=== PATIENT | female | born 1940 | race Caucasian/White ===

== ENCOUNTER 2023-06-17 19:22 | Observation (INO) | payer MEDICARE ==
[2023-06-17] MEDS ORDERED: DUONEB 0.5-3 MG/3 ml Neb IH ONE (19:46)
[2023-06-17] MEDS: DUONEB 0.5-3 MG/3 ml Neb IH ONE (19:48)
[2023-06-17] MEDS ORDERED: Sterile H2O 10 ml IJ ONE (19:58)
[2023-06-17] MEDS ORDERED: solu-MEDROL ONE (19:58)
[2023-06-17] MEDS: solu-MEDROL IV ONE (20:06)
[2023-06-17 20:11] LABS: Absolute Neutrophil Ct (ANC) 7.09 x10^3/uL (1.4-6.9); BASOPHIL % 0.4 % (0.0-0.4); Basophil (Absolute #) 0.04 x10^3/uL (0-0.4); Eosinophil % 0.4 % (0.00-5.0); Eosinophil (Absolute #) 0.04 x10^3/uL (0-0.5); Hematocrit 42.4 % (35-47); Hemoglobin 13.6 g/dL (12.0-16.0); IMMATURE GRAN # 0.03 x10^3u/L (0.00-0.03); IMMATURE GRAN % 0.3 % (0.00-0.4); Lymphocyte (Absolute #) 1.15 x10^3/uL (1.0-4.6); Lymphocytes % 12.2 % (24.0-44.0); Mean Cell Volume 96.6 fL (78-100); Mean Corpuscular Hgb Concent. 32.1 g/dL (32-36); Mean Platelet Volume 10.9 fL (7.5-11.0); Monocyte (Absolute #) 1.11 x10^3/uL (0.0-1.3); Monocytes % 11.7 % (0.0-12.0); Platelet Count 270 x10^3/uL (150-450); Red Blood Count 4.39 x10^6/uL (4.1-5.4); White Blood Count 9.5 x10^3/uL (4.0-10.5)
--- NOTE | 2023-06-17 20:22 | ERPHSYRPT ---
- History of Present Illness Time Seen by Provider: 06/17/23 19:31 Patient Subjective Stated Complaint: SOB, congestion Triage Nursing Assessment: 83 yr old female pt arrives to ED via POV with her family members from home. Pt brought back to room 6 via wheelchair. Pt was able to get into bed independently. Pt reports that she has been sob with congestion and a dry cough for about 1 week. Pt denies chest pain, N/V/D and fever. Pt's son states that several family members have been sick with same symptoms. Pt is SOB with exertion and unable to lie flat. Pt is 90% on room air. Pt's lungs are diminished bilateraly with wheezes to the right lower lobe. Pt is an every day smoker but states that she has smoked in a week due to not feeling well. Pt is alert, oriented and not in distress. Physician History: 83-year-old with history of COPD, tobacco abuse his presented in the ER with complains of increasing shortness of breath for 1 week. Patient reports it started as a cold congestion symptoms with gradually worsening cough minimal productive with associated increased wheezing and chest tightness. Denies any fever or chills/sick contact. Denies any lower extremity swelling. Denies any history of CAD/CHF. History patient reports getting short of breath with minimal activity. Oxygen saturation was borderline around 89/90% on presentation, placed on 2 L and currently around 93%. Allergies/Adverse Reactions: Penicillins Allergy (Severe, Verified 06/17/23 19:31) Home Medications: Timolol Maleate/Pf [Timolol Maleate 0.25% Eye Drop] 8 drops OP BID 06/17/23 [History] Tramadol HCl 50 mg [Ultram 50 mg] 50 mg PO Q6H PRN PRN 06/17/23 [History] Hx Tetanus, Diphtheria Vaccination/Date Given: No Hx Influenza Vaccination/Date Given: Yes Hx Pneumococcal Vaccination/Date Given: Yes Travel Risk - International Travel Have you traveled outside of the country in past 3 weeks: No - Emerging Infectious Disease Are you exhibiting symptoms associated with any current EIDs: Yes Symptoms: Shortness of Breath Comment: SOB x 1 week with congestion - Review of Systems Constitutional: No Symptoms Eyes: No Symptoms Ears, Nose, & Throat: Nose Congestion Respiratory: Cough, Dyspnea, Dyspnea on Exertion (COHEN), Wheezing Cardiac: No Symptoms Abdominal/Gastrointestinal: No Symptoms Genitourinary Symptoms: No Symptoms Musculoskeletal: No Symptoms Skin: No Symptoms Neurological: No Symptoms Psychological: No Symptoms Endocrine: No Symptoms Hematologic/Lymphatic: No Symptoms - Past Medical History Neurological History: No Pertinent History ENT History: Glaucoma Cardiac History: No Pertinent History Respiratory History: No Pertinent History Endocrine Medical History: No Pertinent History Musculoskeletal History: Osteoarthritis GI Medical History: No Pertinent History History: Other Psycho-Social History: No Pertinent History Female Reproductive Disorders: No Pertinent History Other Medical History: frequent UTIs - Past Surgical History Past Surgical History: Yes Neuro Surgical History: No Pertinent History Cardiac: No Pertinent History Respiratory: No Pertinent History Gastrointestinal: No Pertinent History Genitourinary: No Pertinent History Musculoskeletal: Joint Replacement Female Surgical History: Section Other Surgical History: knee replacement - Social History Smoking Status: Current every day smoker Exposure to second hand smoke: No Drug Use: none - Nursing Vital Signs Nursing Vital Signs: Initial Vital Signs Temperature 99.8 F 06/17/23 19:22 Pulse Rate 91 H 06/17/23 19:22 Respiratory Rate 22 06/17/23 19:22 Blood Pressure 193/86 06/17/23 19:22 O2 Sat by Pulse Oximetry 90 L 06/17/23 19:22 Pain Scale Pain Intensity 0 - Physical Exam General Appearance: no apparent distress, alert, anxiety Eye Exam: PERRL/EOMI Ears, Nose, Throat Exam: hearing grossly normal, pharyngeal erythema Neck Exam: normal inspection, non-tender, supple, full range of motion Respiratory Exam: diminished breath sounds, rhonchi, wheezing Cardiovascular/Chest Exam: normal heart sounds, regular rate/rhythm Abdominal/Gastrointestinal Exam: soft, normal bowel sounds, No tenderness Extremity Exam: non-tender, normal range of motion Neurologic Exam: alert, oriented x 3, cooperative, lining repairer II-XII nml as tested Skin Exam: normal color SpO2 Interpretation: O2 applied SpO2: 95 O2 Delivery: Nasal Cannula - Course EKG Interpreted by Me: RATE ([id number]), Sinus Rhythm, NORMAL AXIS, NORMAL INTERVALS, Non-specific ST Changes Ordered Tests: Active Orders 24 hr Category Date Time Status Bedrest ROUTINE Activity 06/17/23 22:49 Active Up With Assistance ROUTINE Activity 06/17/23 22:49 Active Call Admit Doctor for Orders ON ADMISSION Care 06/17/23 22:49 Active Director Acute STAT Care 06/17/23 19:45 Completed Code Status Order ROUTINE Care 06/17/23 22:49 Active EKG-ER Only STAT Care 06/17/23 19:45 Completed Fall Protocol Q1H Care 06/17/23 22:49 Active IV Insertion STAT Care 06/17/23 19:45 Completed Oxygen-ED Only Nasal Cannula 2 lpm Care 06/17/23 19:[address] in Observation ROUTINE Care 06/17/23 22:49 Active Heart-Healthy Diet Diet 06/18/23 Breakfast Active CHEST 1 VIEW (PORTABLE) Stat Exams 06/17/23 19:43 Taken BLOOD CULTURE Stat Lab 06/17/23 20:08 Received CBC W DIFF Stat Lab 06/17/23 20:00 Completed CMP Stat Lab 06/17/23 20:00 Completed Lactic Acid Stat Lab 06/17/23 19:42 Completed Lactic Acid Stat Lab 06/17/23 22:13 Received MAGNESIUM Stat Lab 06/17/23 20:00 Completed NT PRO BNPII Stat Lab 06/17/23 20:08 Completed TROPONIN Q4H Lab 06/17/23 23:45 Ordered TROPONIN Q4H Lab 06/18/23 03:45 Ordered TROPONIN Stat Lab 06/17/23 20:08 Completed UA W/RFX UR CULTURE Stat Lab 06/17/23 20:34 Completed Oxygen Nasal Cannula 2 lpm RT 06/17/23 22:49 Active Pulse Oximetry CONTINUOUS RT 06/17/23 22:49 Active Respiratory Therapy Assessment DAILY RT 06/17/23 19:51 Completed Respiratory Therapy Consult ONCE RT 06/17/23 22:49 Active Transfer Order Routine Transfer 06/17/23 Completed Medication Summary Discontinued Medications Generic Name Dose Route Start Last Admin Trade Name Freq PRN Reason Stop Dose Admin Albuterol/Ipratropium 3 ml 06/17/23 19:42 06/17/23 19:48 Ipratropium/Albuterol Sulfate 3 Ml Ampul.Neb IH 06/17/23 19:43 3 ml STAT ONE Administration Albuterol/Ipratropium Confirm 06/17/23 19:46 Ipratropium/Albuterol Sulfate 3 Ml Ampul.Neb Administered 06/17/23 19:47 Dose 3 ml IH .STK-MED ONE Methylprednisolone Sodium Succinate 60 mg 06/17/23 19:59 06/17/23 20:06 Methylprednis Sod Succ 125 Mg/2 Ml Vial IV 06/17/23 20:00 60 mg STAT ONE Administration Methylprednisolone Sodium Succinate Confirm 06/17/23 19:58 Methylprednis Sod Succ 125 Mg/2 Ml Vial Administered 06/17/23 19:59 Dose 125 mg .ROUTE .STK-MED ONE Oseltamivir Phosphate 75 mg 06/17/23 21:01 06/17/23 21:06 Oseltamivir 75 Mg Cap PO 06/17/23 21:02 75 mg STAT ONE Administration Oseltamivir Phosphate Confirm 06/17/23 21:03 Oseltamivir 75 Mg Cap Administered 06/17/23 21:04 Dose 75 mg PO .STK-MED ONE Sterile Water Confirm 06/17/23 19:58 Water For Injection,Sterile 10 Ml Vial Administered 06/17/23 19:59 Dose 10 ml IJ .STK-MED ONE Lab/Rad Data: Laboratory Result Diagrams 06/17/23 20:00 06/17/23 20:00 Laboratory Results 06/17/23 06/17/23 06/17/23 Range/Units 20:34 20:09 20:08 WBC (4.0-10.5) x10^3/uL RBC (4.1-5.4) x10^6/uL Hgb (12.0-16.0) g/dL Hct (35-47) % MCV (78-100) fL MCH (26-32) pg MCHC (32-36) g/dL RDW (11.5-14.0) % Plt Count (150-450) x10^3/uL MPV (7.5-11.0) fL Gran % (36.0-66.0) % Immature Gran % (Auto) (0.00-0.4) % Nucleat RBC Rel Count (0.00-0.1) % Eos # (Auto) (0-0.5) x10^3/uL Immature Gran # (Auto) (0.00-0.03) x10^3u/L Absolute Lymphs (auto) (1.0-4.6) x10^3/uL Absolute Monos (auto) (0.0-1.3) x10^3/uL Absolute Nucleated RBC (0.00-0.01) x10^3u/L Lymphocytes % (24.0-44.0) % Monocytes % (0.0-12.0) % Eosinophils % (0.00-5.0) % Basophils % (0.0-0.4) % Absolute Granulocytes (1.4-6.9) x10^3/uL Basophils # (0-0.4) x10^3/uL Sodium (135-145) mmol/L Potassium (3.5-5.1) mmol/L Chloride (98-107) mmol/L Carbon Dioxide (22-30) mmol/L Anion Gap (5-15) MEQ/L BUN (7-17) mg/dL Creatinine (0.52-1.04) mg/dL Estimated GFR ML/MIN Glucose (74-106) mg/dL Lactic Acid (0.4-2.0) Calcium (8.4-10.2) mg/dL Magnesium (1.6-2.3) mg/dL Total Bilirubin (0.2-1.3) mg/dL AST (14-36) U/L ALT (0-35) U/L Alkaline Phosphatase (38-126) U/L Troponin I < 0.012 (0.000-0.033) ng/mL NT-Pro-B Natriuret Pep 210 (<300) pg/mL Serum Total Protein (6.3-8.2) g/dL Albumin (3.5-5.0) g/dL Urine Color Yellow (Yellow) Urine Appearance Cloudy A (Clear) Urine pH 7.5 (4.6-8.0) Ur Specific Scott[place] 1.010 (1.005-1.030) Urine Protein Trace A (Negative) Urine Glucose (UA) Negative (Negative) mg/dL Urine Ketones Negative (Negative) Urine Blood Negative (Negative) Urine Nitrite Negative (Negative) Urine Bilirubin Negative (Negative) Urine Urobilinogen 1.0 A (0.2) mg/dL Ur Leukocyte Esterase Negative (Negative) U Hyaline Cast (Auto) NONE SEEN (0-2) /LPF Urine Microscopic RBC 3-5 (0-5) /HPF Urine Microscopic WBC 0-2 (0-5) /HPF Ur Epithelial Cells None Seen (None Seen) /HPF Urine Bacteria None Seen (None Seen) /HPF Urine Culture Reflexed NO (NO) Influenza Type A Ag POSITIVE A (NEGATIVE) Influenza Type B Ag NEGATIVE (NEGATIVE) RSV (PCR) NEGATIVE (NEGATIVE) SARS-CoV-2 (PCR) NEGATIVE (NEGATIVE) 06/17/23 06/17/23 06/17/23 Range/Units 20:00 20:00 19:42 WBC 9.5 (4.0-10.5) x10^3/uL RBC 4.39 (4.1-5.4) x10^6/uL Hgb 13.6 (12.0-16.0) g/dL Hct 42.4 (35-47) % MCV 96.6 (78-100) fL MCH 31.0 (26-32) pg MCHC 32.1 (32-36) g/dL RDW 13.0 (11.5-14.0) % Plt Count 270 (150-450) x10^3/uL MPV 10.9 (7.5-11.0) fL Gran % 75.0 H (36.0-66.0) % Immature Gran % (Auto) 0.3 (0.00-0.4) % Nucleat RBC Rel Count 0.0 (0.00-0.1) % Eos # (Auto) 0.04 (0-0.5) x10^3/uL Immature Gran # (Auto) 0.03 (0.00-0.03) x10^3u/L Absolute Lymphs (auto) 1.15 (1.0-4.6) x10^3/uL Absolute Monos (auto) 1.11 (0.0-1.3) x10^3/uL Absolute Nucleated RBC 0.00 (0.00-0.01) x10^3u/L Lymphocytes % 12.2 L (24.0-44.0) % Monocytes % 11.7 (0.0-12.0) % Eosinophils % 0.4 (0.00-5.0) % Basophils % 0.4 (0.0-0.4) % Absolute Granulocytes 7.09 H (1.4-6.9) x10^3/uL Basophils # 0.04 (0-0.4) x10^3/uL Sodium 136 (135-145) mmol/L Potassium 3.9 (3.5-5.1) mmol/L Chloride 102 (98-107) mmol/L Carbon Dioxide 29 (22-30) mmol/L Anion Gap 9.9 (5-15) MEQ/L BUN 26 H (7-17) mg/dL Creatinine 0.75 (0.52-1.04) mg/dL Estimated GFR 78.5 ML/MIN Glucose 121 H (74-106) mg/dL Lactic Acid 1.9 (0.4-2.0) Calcium 9.3 (8.4-10.2) mg/dL Magnesium 1.8 (1.6-2.3) mg/dL Total Bilirubin 0.20 (0.2-1.3) mg/dL AST 34 (14-36) U/L ALT 22 (0-35) U/L Alkaline Phosphatase 72 (38-126) U/L Troponin I (0.000-0.033) ng/mL NT-Pro-B Natriuret Pep (<300) pg/mL Serum Total Protein 6.2 L (6.3-8.2) g/dL Albumin 3.5 (3.5-5.0) g/dL Urine Color (Yellow) Urine Appearance (Clear) Urine pH (4.6-8.0) Ur Specific Scotts (1.005-1.030) Urine Protein (Negative) Urine Glucose (UA) (Negative) mg/dL Urine Ketones (Negative) Urine Blood (Negative) Urine Nitrite (Negative) Urine Bilirubin (Negative) Urine Urobilinogen (0.2) mg/dL Ur Leukocyte Esterase (Negative) U Hyaline Cast (Auto) (0-2) /LPF Urine Microscopic RBC (0-5) /HPF Urine Microscopic WBC (0-5) /HPF Ur Epithelial Cells (None Seen) /HPF Urine Bacteria (None Seen) /HPF Urine Culture Reflexed (NO) Influenza Type A Ag (NEGATIVE) Influenza Type B Ag (NEGATIVE) RSV (PCR) (NEGATIVE) SARS-CoV-2 (PCR) (NEGATIVE) - Progress Progress: improved, re-examined Air Movement: fair Progress Note: 06/17/23 23:01 83 years old is evaluated for increasing cough congestion and shortness of breath. Patient was borderline hypoxic on presentation, placed on 2 L oxygen. She is given DuoNeb and steroids. Chest x-ray negative for any acute cardiopulmonary findings reviewed by me, has chronic changes, official report is pending. EKG no acute ST elevations. Negative initial troponins. Chemistries fairly unremarkable. I believe patient has COPD exacerbation and also has a positive influenza A. Started on Tamiflu. Since she is on 2 L oxygen, I believe patient would benefit with frequent neb treatments, IV steroids and slowly weaning her off of oxygen. I have discussed with Dr. Madelaine Tatum, reviewed history, workup and agreed with observation admission. I have discussed the results of workup with patient and family and plan of admission which they understand and agree with it. Blood Culture(s) Obtained: Yes Antibiotics given: No Discussed with Dr.: Suki Will see patient in: hospital (observation) Counseled pt/family regarding: lab results, diagnosis, rad results, smoking cessation Medical Desision Making - Independent Historian Additional History obtained from: Family - Discussion of managment Care discussed with:: hospitalist Reviewed:: Test results Agreed on:: Treatment plan, place in obs Will see patient: in hospital - Diagnostic Testing Diagnostic test were ordered, analyzed, and reviewed by me: Yes Radiological Interpretation: Interpreted by me, Reviewed by me - Risk of complications The pt has a high risk of morbidity or mortality based on: Decision regarding hospitilization or escalation of hosp level of care - Departure Departure Disposition: Observation Clinical Impression: COPD exacerbation, Influenza A, Respiratory failure Condition: Stable Critical Care Time: No
[2023-06-17 20:26] LABS: ALBUMIN 3.5 g/dL (3.5-5.0); ANION GAP 9.9 MEQ/L (5-15); BILIRUBIN,TOTAL 0.2 mg/dL (0.2-1.3); Calcium 9.3 mg/dL (8.4-10.2); Creatinine 1 0.75 mg/dL (0.52-1.04); EST GLOMERULAR FILTRATION RATE 78.5 ML/MIN; MAGNESIUM 1.8 mg/dL (1.6-2.3); Potassium 3.9 mmol/L (3.5-5.1); Total Protein 6.2 g/dL (6.3-8.2)
[2023-06-17 20:38] LABS: NT PRO BNPII 210 pg/mL (<300); TROPONIN < 0.012 ng/mL (0.000-0.033)
[2023-06-17 20:42] LABS: Appearance Cloudy (Clear); Bacteria None Seen /HPF (None Seen); Bilirubin Negative (Negative); Blood Negative (Negative); Epithelial Cells None Seen /HPF (None Seen); Glucose, Urine Negative (Negative); Hyaline Casts NONE SEEN /LPF (0-2); Ketones Negative (Negative); Leukocyte Esterase Negative (Negative); Nitrite Negative (Negative); Ph 7.5 (4.6-8.0); Protein,Urine Dip Trace (Negative); WBC 0-2 /HPF (0-5)
[2023-06-17 20:43] LABS: ADD URINE CULTURE? NO (NO)
[2023-06-17 20:50] LABS: INFLUENZA B NEGATIVE (NEGATIVE); RESPIRATORY SYNCTIAL VIRUS NEGATIVE (NEGATIVE); SARS-CoV-2 Xpert Express NEGATIVE (NEGATIVE)
[2023-06-17 20:51] LABS: INFLUENZA A POSITIVE (NEGATIVE)
[2023-06-17] MEDS ORDERED: Tamiflu 75MG Capsule PO ONE (21:03)
[2023-06-17] MEDS: Tamiflu 75MG Capsule PO ONE (21:06)
--- NOTE | 2023-06-17 22:44 | PCM.HP ---
History of Present Illness - Chief Complaint Chief Complaint: FLUA+, COPD Exacerbation History of Present Illness: is a 83 year old female with COPD who presents with cough, congestion, shortness of breath and found to have FluA+ test in the ED. 90% on room air that improved to 99% on 2 liters in the ED. Many similar sick contacts at home as well. Denies chest pain. Symptoms improving with breathing treatments. - Review of Systems Constitutional: No Fever, No Chills Eyes: No Symptoms Ears, Nose, & Throat: No Symptoms Respiratory: No Cough, No Short Of Breath Cardiac: No Chest Pain, No Edema, No Syncope Abdominal/Gastrointestinal: No Abdominal Pain, No Nausea, No Vomiting, No Diarrhea Genitourinary Symptoms: No Dysuria Musculoskeletal: No Back Pain, No Neck Pain Skin: No Rash Neurological: No Dizziness, No Focal Weakness, No Sensory Changes Psychological: No Symptoms Endocrine: No Symptoms Hematologic/Lymphatic: No Symptoms Immunological/Allergic: No Symptoms Medications & Allergies Home Medications: Home Medication List Timolol Maleate/Pf [Timolol Maleate 0.25% Eye Drop] 8 drops OP BID 06/17/23 [History Confirmed 06/17/23] Tramadol HCl 50 mg [Ultram 50 mg] 50 mg PO Q6H PRN PRN 06/17/23 [History Confirmed 06/17/23] Allergies/Adverse Reactions: Allergies Allergy/AdvReac Type Severity Reaction Status Date / Time Penicillins Allergy Severe Verified 06/17/23 19:31 - Past Medical History Neurological History: No Pertinent History ENT History: Glaucoma Cardiac History: No Pertinent History Respiratory History: No Pertinent History Endocrine Medical History: No Pertinent History Musculoskelatal History: Osteoarthritis GI Medical History: No Pertinent History History: Other Pyscho-Social History: No Pertinent History Reproductive Disorders: No Pertinent History Comment: frequent UTIs - Past Surgical History Past Surgical History: Yes Neuro Surgical History: No Pertinent History Cardiac History: No Pertinent History Respiratory Surgery: No Pertinent History GI Surgical History: No Pertinent History Genitourinary Surgical Hx: No Pertinent History Musculskeletal Surgical Hx: Joint Replacement Female Surgical History: Section Other Surgical History: knee replacement - Social History Smoking Status: Current every day smoker Exposure to second hand smoke: No Alcohol: None Drug Use: none - Social Determinants of Health Will the patient participate in the screening: Yes Do you worry about a steady place to live?: No Do you have any problems with any of the following?: No known problems In the past 12 months,have you had to go without utilities?: No Have you or anyone in your house had to go without enough: No Transportation Issues: No Has anyone in your support network made you feel unsafe?: No - Physical Exam Vital Signs: Vital Signs - 24 hr Temp Pulse Resp BP BP Pulse Ox 06/17/23 22:10 84 27 H 95 06/17/23 22:00 85 25 H 95 06/17/23 21:50 83 26 H 94 L 06/17/23 21:40 77 22 97 06/17/23 21:30 79 21 96 06/17/23 21:20 79 31 H 95 06/17/23 21:10 82 27 H 95 06/17/23 21:02 88 20 95 06/17/23 20:24 95 06/17/23 20:23 79 19 174/91 84 L 06/17/23 19:52 75 20 95 06/17/23 19:38 22 90 L 06/17/23 19:30 74 21 181/85 99 06/17/23 19:22 99.8 F 91 H 22 193/86 90 L General Appearance: no apparent distress, alert Neurologic Exam: alert, oriented x 3, cooperative, normal mood/affect, nml cerebellar function, nml station & gait, sensation nml, No motor deficits Eye Exam: PERRL/EOMI, eyes nml inspection Ears, Nose, Throat Exam: normal ENT inspection, TMs normal, pharynx normal, moist mucous membranes Neck Exam: normal inspection, non-tender, supple, full range of motion Respiratory Exam: normal breath sounds, lungs clear, No respiratory distress Cardiovascular Exam: regular rate/rhythm, normal heart sounds, normal peripheral pulses Gastrointestinal/Abdomen Exam: soft, normal bowel sounds, No tenderness, No mass Back Exam: normal inspection, normal range of motion, No CVA tenderness, No vertebral tenderness Extremity Exam: normal inspection, normal range of motion, pelvis stable Skin Exam: normal color, warm, dry, No rash Lymphatic Exam: No adenopathy Results - Labs Lab/Micro Results: Lab Results-Last 24 Hours 06/17/23 06/17/23 06/17/23 Range/Units 19:42 20:00 20:00 WBC 9.5 (4.0-10.5) x10^3/uL RBC 4.39 (4.1-5.4) x10^6/uL Hgb 13.6 (12.0-16.0) g/dL Hct 42.4 (35-47) % MCV 96.6 (78-100) fL MCH 31.0 (26-32) pg MCHC 32.1 (32-36) g/dL RDW 13.0 (11.5-14.0) % Plt Count 270 (150-450) x10^3/uL MPV 10.9 (7.5-11.0) fL Gran % 75.0 H (36.0-66.0) % Immature Gran % (Auto) 0.3 (0.00-0.4) % Nucleat RBC Rel Count 0.0 (0.00-0.1) % Eos # (Auto) 0.04 (0-0.5) x10^3/uL Immature Gran # (Auto) 0.03 (0.00-0.03) x10^3u/L Absolute Lymphs (auto) 1.15 (1.0-4.6) x10^3/uL Absolute Monos (auto) 1.11 (0.0-1.3) x10^3/uL Absolute Nucleated RBC 0.00 (0.00-0.01) x10^3u/L Lymphocytes % 12.2 L (24.0-44.0) % Monocytes % 11.7 (0.0-12.0) % Eosinophils % 0.4 (0.00-5.0) % Basophils % 0.4 (0.0-0.4) % Absolute Granulocytes 7.09 H (1.4-6.9) x10^3/uL Basophils # 0.04 (0-0.4) x10^3/uL Sodium 136 (135-145) mmol/L Potassium 3.9 (3.5-5.1) mmol/L Chloride 102 (98-107) mmol/L Carbon Dioxide 29 (22-30) mmol/L Anion Gap 9.9 (5-15) MEQ/L BUN 26 H (7-17) mg/dL Creatinine 0.75 (0.52-1.04) mg/dL Estimated GFR 78.5 ML/MIN Glucose 121 H (74-106) mg/dL Lactic Acid 1.9 (0.4-2.0) Calcium 9.3 (8.4-10.2) mg/dL Magnesium 1.8 (1.6-2.3) mg/dL Total Bilirubin 0.20 (0.2-1.3) mg/dL AST 34 (14-36) U/L ALT 22 (0-35) U/L Alkaline Phosphatase 72 (38-126) U/L Troponin I (0.000-0.033) ng/mL NT-Pro-B Natriuret Pep (<300) pg/mL Serum Total Protein 6.2 L (6.3-8.2) g/dL Albumin 3.5 (3.5-5.0) g/dL Urine Color (Yellow) Urine Appearance (Clear) Urine pH (4.6-8.0) Ur Specific Craig (1.005-1.030) Urine Protein (Negative) Urine Glucose (UA) (Negative) mg/dL Urine Ketones (Negative) Urine Blood (Negative) Urine Nitrite (Negative) Urine Bilirubin (Negative) Urine Urobilinogen (0.2) mg/dL Ur Leukocyte Esterase (Negative) U Hyaline Cast (Auto) (0-2) /LPF Urine Microscopic RBC (0-5) /HPF Urine Microscopic WBC (0-5) /HPF Ur Epithelial Cells (None Seen) /HPF Urine Bacteria (None Seen) /HPF Urine Culture Reflexed (NO) Influenza Type A Ag (NEGATIVE) Influenza Type B Ag (NEGATIVE) RSV (PCR) (NEGATIVE) SARS-CoV-2 (PCR) (NEGATIVE) 06/17/23 06/17/23 06/17/23 Range/Units 20:08 20:09 20:34 WBC (4.0-10.5) x10^3/uL RBC (4.1-5.4) x10^6/uL Hgb (12.0-16.0) g/dL Hct (35-47) % MCV (78-100) fL MCH (26-32) pg MCHC (32-36) g/dL RDW (11.5-14.0) % Plt Count (150-450) x10^3/uL MPV (7.5-11.0) fL Gran % (36.0-66.0) % Immature Gran % (Auto) (0.00-0.4) % Nucleat RBC Rel Count (0.00-0.1) % Eos # (Auto) (0-0.5) x10^3/uL Immature Gran # (Auto) (0.00-0.03) x10^3u/L Absolute Lymphs (auto) (1.0-4.6) x10^3/uL Absolute Monos (auto) (0.0-1.3) x10^3/uL Absolute Nucleated RBC (0.00-0.01) x10^3u/L Lymphocytes % (24.0-44.0) % Monocytes % (0.0-12.0) % Eosinophils % (0.00-5.0) % Basophils % (0.0-0.4) % Absolute Granulocytes (1.4-6.9) x10^3/uL Basophils # (0-0.4) x10^3/uL Sodium (135-145) mmol/L Potassium (3.5-5.1) mmol/L Chloride (98-107) mmol/L Carbon Dioxide (22-30) mmol/L Anion Gap (5-15) MEQ/L BUN (7-17) mg/dL Creatinine (0.52-1.04) mg/dL Estimated GFR ML/MIN Glucose (74-106) mg/dL Lactic Acid (0.4-2.0) Calcium (8.4-10.2) mg/dL Magnesium (1.6-2.3) mg/dL Total Bilirubin (0.2-1.3) mg/dL AST (14-36) U/L ALT (0-35) U/L Alkaline Phosphatase (38-126) U/L Troponin I < 0.012 (0.000-0.033) ng/mL NT-Pro-B Natriuret Pep 210 (<300) pg/mL Serum Total Protein (6.3-8.2) g/dL Albumin (3.5-5.0) g/dL Urine Color Yellow (Yellow) Urine Appearance Cloudy A (Clear) Urine pH 7.5 (4.6-8.0) Ur Specific [place] 1.010 (1.005-1.030) Urine Protein Trace A (Negative) Urine Glucose (UA) Negative (Negative) mg/dL Urine Ketones Negative (Negative) Urine Blood Negative (Negative) Urine Nitrite Negative (Negative) Urine Bilirubin Negative (Negative) Urine Urobilinogen 1.0 A (0.2) mg/dL Ur Leukocyte Esterase Negative (Negative) U Hyaline Cast (Auto) NONE SEEN (0-2) /LPF Urine Microscopic RBC 3-5 (0-5) /HPF Urine Microscopic WBC 0-2 (0-5) /HPF Ur Epithelial Cells None Seen (None Seen) /HPF Urine Bacteria None Seen (None Seen) /HPF Urine Culture Reflexed NO (NO) Influenza Type A Ag POSITIVE A (NEGATIVE) Influenza Type B Ag NEGATIVE (NEGATIVE) RSV (PCR) NEGATIVE (NEGATIVE) SARS-CoV-2 (PCR) NEGATIVE (NEGATIVE) - Radiology Impressions Radiology Exams & Impressions: Radiology Procedures Category Date Time Status CHEST 1 VIEW (PORTABLE) Stat Exams 06/17/23 19:43 Taken - Other Procedures and Tests Respiratory Therapy 06/17/23 19:51 Respiratory Therapy Assessment DAILY Assessment/Plan (1) COPD (chronic obstructive pulmonary disease) Current Visit: Yes Status: Acute Assessment & Plan: 1. Duonebs as needed 2. Steroids given in the ED, can transition to prednisone in the AM 3. Hold off on abx 4. FluA positive - has had symptoms for about 1 week Telemedicine Encounter - Telemedicine Encounter Telemedicine Encounter: The entirety of this encounter was performed via Telemedicine"
--- NOTE | 2023-06-18 06:06 | PCM.NOTE ---
Date and Time: 06/18/23602 Subjective Assessment: Ms Blankenship is an 83 year old female admitted to [facility] 06/17/23 experiencing progressive shortness of breath and productive cough for the past week. Admitted for acute respiratory falure with hypoxia secondary to copd exacerbation and FluA. Objective Data Vital Signs: Vital Signs - 24 hr Temp Pulse Resp BP BP Pulse Ox 06/18/23 04:00 97.7 F 89 19 130/60 94 L 06/18/23 00:05 88 16 94 L 06/17/23 23:32 98.5 F 87 18 120/60 94 L 06/17/23 23:03 95 06/17/23 22:10 98.2 F 84 27 H 95 06/17/23 22:00 85 25 H 95 06/17/23 21:50 83 26 H 94 L 06/17/23 21:40 77 22 97 06/17/23 21:30 79 21 96 06/17/23 21:20 79 31 H 95 06/17/23 21:10 82 27 H 95 06/17/23 21:02 88 20 95 06/17/23 20:23 79 19 174/91 84 L 06/17/23 19:52 75 20 95 06/17/23 19:38 22 90 L 06/17/23 19:30 74 21 181/85 99 06/17/23 19:22 99.8 F 91 H 22 193/86 90 L Pain Assessment - Last Documented Pain Intensity 0 Intake and Output: Intake & Output 06/15/23 06/16/23 06/17/23 06/18/23 11:59 11:59 11:59 11:59 Intake Total 240 Output Total 200 Balance 40 Weight 40.5 kg Lab Results: Lab Results-Last 24 Hours 06/17/23 06/17/23 06/17/23 Range/Units 19:42 20:00 20:00 WBC 9.5 (4.0-10.5) x10^3/uL RBC 4.39 (4.1-5.4) x10^6/uL Hgb 13.6 (12.0-16.0) g/dL Hct 42.4 (35-47) % MCV 96.6 (78-100) fL MCH 31.0 (26-32) pg MCHC 32.1 (32-36) g/dL RDW 13.0 (11.5-14.0) % Plt Count 270 (150-450) x10^3/uL MPV 10.9 (7.5-11.0) fL Gran % 75.0 H (36.0-66.0) % Immature Gran % (Auto) 0.3 (0.00-0.4) % Nucleat RBC Rel Count 0.0 (0.00-0.1) % Eos # (Auto) 0.04 (0-0.5) x10^3/uL Immature Gran # (Auto) 0.03 (0.00-0.03) x10^3u/L Absolute Lymphs (auto) 1.15 (1.0-4.6) x10^3/uL Absolute Monos (auto) 1.11 (0.0-1.3) x10^3/uL Absolute Nucleated RBC 0.00 (0.00-0.01) x10^3u/L Lymphocytes % 12.2 L (24.0-44.0) % Monocytes % 11.7 (0.0-12.0) % Eosinophils % 0.4 (0.00-5.0) % Basophils % 0.4 (0.0-0.4) % Absolute Granulocytes 7.09 H (1.4-6.9) x10^3/uL Basophils # 0.04 (0-0.4) x10^3/uL Sodium 136 (135-145) mmol/L Potassium 3.9 (3.5-5.1) mmol/L Chloride 102 (98-107) mmol/L Carbon Dioxide 29 (22-30) mmol/L Anion Gap 9.9 (5-15) MEQ/L BUN 26 H (7-17) mg/dL Creatinine 0.75 (0.52-1.04) mg/dL Estimated GFR 78.5 ML/MIN Glucose 121 H (74-106) mg/dL Lactic Acid 1.9 (0.4-2.0) Calcium 9.3 (8.4-10.2) mg/dL Magnesium 1.8 (1.6-2.3) mg/dL Total Bilirubin 0.20 (0.2-1.3) mg/dL AST 34 (14-36) U/L ALT 22 (0-35) U/L Alkaline Phosphatase 72 (38-126) U/L Troponin I (0.000-0.033) ng/mL NT-Pro-B Natriuret Pep (<300) pg/mL Serum Total Protein 6.2 L (6.3-8.2) g/dL Albumin 3.5 (3.5-5.0) g/dL Urine Color (Yellow) Urine Appearance (Clear) Urine pH (4.6-8.0) Ur Specific [place] (1.005-1.030) Urine Protein (Negative) Urine Glucose (UA) (Negative) mg/dL Urine Ketones (Negative) Urine Blood (Negative) Urine Nitrite (Negative) Urine Bilirubin (Negative) Urine Urobilinogen (0.2) mg/dL Ur Leukocyte Esterase (Negative) U Hyaline Cast (Auto) (0-2) /LPF Urine Microscopic RBC (0-5) /HPF Urine Microscopic WBC (0-5) /HPF Ur Epithelial Cells (None Seen) /HPF Urine Bacteria (None Seen) /HPF Urine Culture Reflexed (NO) Influenza Type A Ag (NEGATIVE) Influenza Type B Ag (NEGATIVE) RSV (PCR) (NEGATIVE) SARS-CoV-2 (PCR) (NEGATIVE) 06/17/23 06/17/23 06/17/23 Range/Units 20:08 20:09 20:34 WBC (4.0-10.5) x10^3/uL RBC (4.1-5.4) x10^6/uL Hgb (12.0-16.0) g/dL Hct (35-47) % MCV (78-100) fL MCH (26-32) pg MCHC (32-36) g/dL RDW (11.5-14.0) % Plt Count (150-450) x10^3/uL MPV (7.5-11.0) fL Gran % (36.0-66.0) % Immature Gran % (Auto) (0.00-0.4) % Nucleat RBC Rel Count (0.00-0.1) % Eos # (Auto) (0-0.5) x10^3/uL Immature Gran # (Auto) (0.00-0.03) x10^3u/L Absolute Lymphs (auto) (1.0-4.6) x10^3/uL Absolute Monos (auto) (0.0-1.3) x10^3/uL Absolute Nucleated RBC (0.00-0.01) x10^3u/L Lymphocytes % (24.0-44.0) % Monocytes % (0.0-12.0) % Eosinophils % (0.00-5.0) % Basophils % (0.0-0.4) % Absolute Granulocytes (1.4-6.9) x10^3/uL Basophils # (0-0.4) x10^3/uL Sodium (135-145) mmol/L Potassium (3.5-5.1) mmol/L Chloride (98-107) mmol/L Carbon Dioxide (22-30) mmol/L Anion Gap (5-15) MEQ/L BUN (7-17) mg/dL Creatinine (0.52-1.04) mg/dL Estimated GFR ML/MIN Glucose (74-106) mg/dL Lactic Acid (0.4-2.0) Calcium (8.4-10.2) mg/dL Magnesium (1.6-2.3) mg/dL Total Bilirubin (0.2-1.3) mg/dL AST (14-36) U/L ALT (0-35) U/L Alkaline Phosphatase (38-126) U/L Troponin I < 0.012 (0.000-0.033) ng/mL NT-Pro-B Natriuret Pep 210 (<300) pg/mL Serum Total Protein (6.3-8.2) g/dL Albumin (3.5-5.0) g/dL Urine Color Yellow (Yellow) Urine Appearance Cloudy A (Clear) Urine pH 7.5 (4.6-8.0) Ur Specific [place] 1.010 (1.005-1.030) Urine Protein Trace A (Negative) Urine Glucose (UA) Negative (Negative) mg/dL Urine Ketones Negative (Negative) Urine Blood Negative (Negative) Urine Nitrite Negative (Negative) Urine Bilirubin Negative (Negative) Urine Urobilinogen 1.0 A (0.2) mg/dL Ur Leukocyte Esterase Negative (Negative) U Hyaline Cast (Auto) NONE SEEN (0-2) /LPF Urine Microscopic RBC 3-5 (0-5) /HPF Urine Microscopic WBC 0-2 (0-5) /HPF Ur Epithelial Cells None Seen (None Seen) /HPF Urine Bacteria None Seen (None Seen) /HPF Urine Culture Reflexed NO (NO) Influenza Type A Ag POSITIVE A (NEGATIVE) Influenza Type B Ag NEGATIVE (NEGATIVE) RSV (PCR) NEGATIVE (NEGATIVE) SARS-CoV-2 (PCR) NEGATIVE (NEGATIVE) Radiology Exams: Radiology Procedures Category Date Time Status CHEST 1 VIEW (PORTABLE) Stat Exams 06/17/23 19:43 Taken Assessment/Plan (1) COPD exacerbation Current Visit: Yes Status: Acute Code(s): J44.1 - CHRONIC OBSTRUCTIVE PULMONARY DISEASE W (ACUTE) EXACERBATION (2) Influenza A Current Visit: Yes Status: Acute Code(s): J10.1 - FLU DUE TO OTH IDENT INFLUENZA VIRUS W OTH RESP MANIFEST (3) Respiratory failure Current Visit: Yes Status: Acute Code(s): J96.90 - RESPIRATORY FAILURE, UNSP, UNSP W HYPOXIA OR HYPERCAPNIA
[2023-06-18] MEDS ORDERED: MEDICATION INTERVENTION MC SCH (07:15)
[2023-06-18 07:39] LABS: Absolute Neutrophil Ct (ANC) 5.29 x10^3/uL (1.4-6.9); BASOPHIL % 0.1 % (0.0-0.4); Basophil (Absolute #) 0.01 x10^3/uL (0-0.4); Eosinophil (Absolute #) 0 x10^3/uL (0-0.5); Hematocrit 41.3 % (35-47); Hemoglobin 13.3 g/dL (12.0-16.0); IMMATURE GRAN # 0.04 x10^3u/L (0.00-0.03); IMMATURE GRAN % 0.6 % (0.00-0.4); Lymphocyte (Absolute #) 0.97 x10^3/uL (1.0-4.6); Lymphocytes % 14.3 % (24.0-44.0); Mean Cell Volume 94.9 fL (78-100); Mean Corpuscular Hemoglobin 30.6 pg (26-32); Mean Corpuscular Hgb Concent. 32.2 g/dL (32-36); Monocyte (Absolute #) 0.47 x10^3/uL (0.0-1.3); Monocytes % 6.9 % (0.0-12.0); Neutrophil % 78.1 % (36.0-66.0); Platelet Count 254 x10^3/uL (150-450); Red Blood Count 4.35 x10^6/uL (4.1-5.4); White Blood Count 6.8 x10^3/uL (4.0-10.5)
[2023-06-18 07:53] LABS: ALBUMIN 3.5 g/dL (3.5-5.0); ANION GAP 11.4 MEQ/L (5-15); BILIRUBIN,TOTAL 0.2 mg/dL (0.2-1.3); Calcium 8.8 mg/dL (8.4-10.2); Creatinine 1 0.65 mg/dL (0.52-1.04); EST GLOMERULAR FILTRATION RATE 86.8 ML/MIN; Potassium 4.4 mmol/L (3.5-5.1); Total Protein 6.5 g/dL (6.3-8.2)
--- NOTE | 2023-06-18 08:46 | XRAY ---
Indication: Short of breath. Comparison: December 29, 2011 Portable chest again demonstrates COPD. New right base discoid atelectasis/scarring. No focal infiltrate, consolidation, or large effusion. Heart not enlarged again with right hilar calcified node. Bony thorax intact again with osteopenia, degenerative changes, and scoliosis. Impression: Continued nonacute chest with chronic features.
[2023-06-18 09:27] VITALS: BP 122/64
[2023-06-18] MEDS ORDERED: [UNRECOGNIZED DRUG - OTHER] OP SCH (10:00)
[2023-06-18] MEDS ORDERED: Tamiflu 75MG Capsule PO SCH (10:00)
[2023-06-18 12:14] VITALS: RESP 20
--- NOTE | 2023-06-18 14:07 | PCM.DS ---
Discharge Summary Date of Admission: 06/17/23 22:43 Date of Discharge: 06/18/23 Admitting Physician: TIM BUCIO MD Primary Care Provider: RUPERTO REYES ABDELRAHMAN Allergies Allergies Penicillins Allergy (Severe, Verified 06/17/23 19:31) Hospital Summary - Hospital Course Hospital Course: Ms Blankenship is an 83 year old female admitted to [facility] 06/17/23 experiencing progressive shortness of breath and productive cough for the past week. Admitted for acute respiratory falure with hypoxia secondary to copd exacerbation and FluA. Dyspnea improved overnight. She is past the window for Tamiflu. Will require home oxygen. Labs unremarkable. Will dismiss with home oxygen, nebs/neb machine, and medrol dose pack. Discharge Note New Diagnosis: Influenza A/copd exac New Medications:see above Latest Assessment & Plan (1) COPD exacerbation Current Visit: Yes Status: Acute Code(s): J44.1 - CHRONIC OBSTRUCTIVE PULMONARY DISEASE W (ACUTE) EXACERBATION -Patient qualifies for home oxygen -Nebulizer machine with duonebs Q6h PRN -medrol dose pack (2) Influenza A Current Visit: Yes Status: Acute Code(s): J10.1 - FLU DUE TO OTH IDENT INFLUENZA VIRUS W OTH RESP MANIFEST -Out of window for Tamiflu - symptoms started one week ago (3) Respiratory failure Current Visit: Yes Status: Acute Code(s): J96.90 - RESPIRATORY FAILURE, UNSP, UNSP W HYPOXIA OR HYPERCAPNIA -2/2 to copd exac/ flu A -see above I spent 35 minutes [id number] with the patient on the day of discharge performing discharge exam, discussing hospital stay and discharge instructions with patient and caregivers, preparation of discharge records, prescriptions & referral forms and addressing any questions/concerns the patient had as documented above. - Vitals & Intake/Output Vital Signs: Vital Signs Temperature 98.1 F 06/18/23 12:00 Pulse Rate 96 H 06/18/23 12:00 Respiratory Rate 20 06/18/23 12:00 Blood Pressure 122/64 06/18/23 08:00 O2 Sat by Pulse Oximetry 96 06/18/23 12:00 Intake & Output: Intake & Output 06/16/23 06/17/23 06/18/23 06/19/23 11:59 11:59 11:59 11:59 Intake Total 360 Output Total 200 Balance 160 Weight 40.5 kg - Lab Result Diagrams: 06/18/23 07:36 06/18/23 07:36 Lab Results-Last 24 Hrs: Lab Results-Last 24 Hours 06/17/23 06/17/23 06/17/23 Range/Units 19:42 20:00 20:00 WBC 9.5 (4.0-10.5) x10^3/uL RBC 4.39 (4.1-5.4) x10^6/uL Hgb 13.6 (12.0-16.0) g/dL Hct 42.4 (35-47) % MCV 96.6 (78-100) fL MCH 31.0 (26-32) pg MCHC 32.1 (32-36) g/dL RDW 13.0 (11.5-14.0) % Plt Count 270 (150-450) x10^3/uL MPV 10.9 (7.5-11.0) fL Gran % 75.0 H (36.0-66.0) % Immature Gran % (Auto) 0.3 (0.00-0.4) % Nucleat RBC Rel Count 0.0 (0.00-0.1) % Eos # (Auto) 0.04 (0-0.5) x10^3/uL Immature Gran # (Auto) 0.03 (0.00-0.03) x10^3u/L Absolute Lymphs (auto) 1.15 (1.0-4.6) x10^3/uL Absolute Monos (auto) 1.11 (0.0-1.3) x10^3/uL Absolute Nucleated RBC 0.00 (0.00-0.01) x10^3u/L Lymphocytes % 12.2 L (24.0-44.0) % Monocytes % 11.7 (0.0-12.0) % Eosinophils % 0.4 (0.00-5.0) % Basophils % 0.4 (0.0-0.4) % Absolute Granulocytes 7.09 H (1.4-6.9) x10^3/uL Basophils # 0.04 (0-0.4) x10^3/uL Sodium 136 (135-145) mmol/L Potassium 3.9 (3.5-5.1) mmol/L Chloride 102 (98-107) mmol/L Carbon Dioxide 29 (22-30) mmol/L Anion Gap 9.9 (5-15) MEQ/L BUN 26 H (7-17) mg/dL Creatinine 0.75 (0.52-1.04) mg/dL Estimated GFR 78.5 ML/MIN Glucose 121 H (74-106) mg/dL Lactic Acid 1.9 (0.4-2.0) Calcium 9.3 (8.4-10.2) mg/dL Magnesium 1.8 (1.6-2.3) mg/dL Total Bilirubin 0.20 (0.2-1.3) mg/dL AST 34 (14-36) U/L ALT 22 (0-35) U/L Alkaline Phosphatase 72 (38-126) U/L Troponin I (0.000-0.033) ng/mL NT-Pro-B Natriuret Pep (<300) pg/mL Serum Total Protein 6.2 L (6.3-8.2) g/dL Albumin 3.5 (3.5-5.0) g/dL Urine Color (Yellow) Urine Appearance (Clear) Urine pH (4.6-8.0) Ur Specific [place] (1.005-1.030) Urine Protein (Negative) Urine Glucose (UA) (Negative) mg/dL Urine Ketones (Negative) Urine Blood (Negative) Urine Nitrite (Negative) Urine Bilirubin (Negative) Urine Urobilinogen (0.2) mg/dL Ur Leukocyte Esterase (Negative) U Hyaline Cast (Auto) (0-2) /LPF Urine Microscopic RBC (0-5) /HPF Urine Microscopic WBC (0-5) /HPF Ur Epithelial Cells (None Seen) /HPF Urine Bacteria (None Seen) /HPF Urine Culture Reflexed (NO) Influenza Type A Ag (NEGATIVE) Influenza Type B Ag (NEGATIVE) RSV (PCR) (NEGATIVE) SARS-CoV-2 (PCR) (NEGATIVE) 06/17/23 06/17/23 06/17/23 Range/Units 20:08 20:09 20:34 WBC (4.0-10.5) x10^3/uL RBC (4.1-5.4) x10^6/uL Hgb (12.0-16.0) g/dL Hct (35-47) % MCV (78-100) fL MCH (26-32) pg MCHC (32-36) g/dL RDW (11.5-14.0) % Plt Count (150-450) x10^3/uL MPV (7.5-11.0) fL Gran % (36.0-66.0) % Immature Gran % (Auto) (0.00-0.4) % Nucleat RBC Rel Count (0.00-0.1) % Eos # (Auto) (0-0.5) x10^3/uL Immature Gran # (Auto) (0.00-0.03) x10^3u/L Absolute Lymphs (auto) (1.0-4.6) x10^3/uL Absolute Monos (auto) (0.0-1.3) x10^3/uL Absolute Nucleated RBC (0.00-0.01) x10^3u/L Lymphocytes % (24.0-44.0) % Monocytes % (0.0-12.0) % Eosinophils % (0.00-5.0) % Basophils % (0.0-0.4) % Absolute Granulocytes (1.4-6.9) x10^3/uL Basophils # (0-0.4) x10^3/uL Sodium (135-145) mmol/L Potassium (3.5-5.1) mmol/L Chloride (98-107) mmol/L Carbon Dioxide (22-30) mmol/L Anion Gap (5-15) MEQ/L BUN (7-17) mg/dL Creatinine (0.52-1.04) mg/dL Estimated GFR ML/MIN Glucose (74-106) mg/dL Lactic Acid (0.4-2.0) Calcium (8.4-10.2) mg/dL Magnesium (1.6-2.3) mg/dL Total Bilirubin (0.2-1.3) mg/dL AST (14-36) U/L ALT (0-35) U/L Alkaline Phosphatase (38-126) U/L Troponin I < 0.012 (0.000-0.033) ng/mL NT-Pro-B Natriuret Pep 210 (<300) pg/mL Serum Total Protein (6.3-8.2) g/dL Albumin (3.5-5.0) g/dL Urine Color Yellow (Yellow) Urine Appearance Cloudy A (Clear) Urine pH 7.5 (4.6-8.0) Ur Specific [place] 1.010 (1.005-1.030) Urine Protein Trace A (Negative) Urine Glucose (UA) Negative (Negative) mg/dL Urine Ketones Negative (Negative) Urine Blood Negative (Negative) Urine Nitrite Negative (Negative) Urine Bilirubin Negative (Negative) Urine Urobilinogen 1.0 A (0.2) mg/dL Ur Leukocyte Esterase Negative (Negative) U Hyaline Cast (Auto) NONE SEEN (0-2) /LPF Urine Microscopic RBC 3-5 (0-5) /HPF Urine Microscopic WBC 0-2 (0-5) /HPF Ur Epithelial Cells None Seen (None Seen) /HPF Urine Bacteria None Seen (None Seen) /HPF Urine Culture Reflexed NO (NO) Influenza Type A Ag POSITIVE A (NEGATIVE) Influenza Type B Ag NEGATIVE (NEGATIVE) RSV (PCR) NEGATIVE (NEGATIVE) SARS-CoV-2 (PCR) NEGATIVE (NEGATIVE) 06/18/23 06/18/23 Range/Units 07:36 07:36 WBC 6.8 (4.0-10.5) x10^3/uL RBC 4.35 (4.1-5.4) x10^6/uL Hgb 13.3 (12.0-16.0) g/dL Hct 41.3 (35-47) % MCV 94.9 (78-100) fL MCH 30.6 (26-32) pg MCHC 32.2 (32-36) g/dL RDW 13.0 (11.5-14.0) % Plt Count 254 (150-450) x10^3/uL MPV 10.0 (7.5-11.0) fL Gran % 78.1 H (36.0-66.0) % Immature Gran % (Auto) 0.6 H (0.00-0.4) % Nucleat RBC Rel Count 0.0 (0.00-0.1) % Eos # (Auto) 0 (0-0.5) x10^3/uL Immature Gran # (Auto) 0.04 H (0.00-0.03) x10^3u/L Absolute Lymphs (auto) 0.97 L (1.0-4.6) x10^3/uL Absolute Monos (auto) 0.47 (0.0-1.3) x10^3/uL Absolute Nucleated RBC 0.00 (0.00-0.01) x10^3u/L Lymphocytes % 14.3 L (24.0-44.0) % Monocytes % 6.9 (0.0-12.0) % Eosinophils % 0.0 (0.00-5.0) % Basophils % 0.1 (0.0-0.4) % Absolute Granulocytes 5.29 (1.4-6.9) x10^3/uL Basophils # 0.01 (0-0.4) x10^3/uL Sodium 140 (135-145) mmol/L Potassium 4.4 (3.5-5.1) mmol/L Chloride 105 (98-107) mmol/L Carbon Dioxide 28 (22-30) mmol/L Anion Gap 11.4 (5-15) MEQ/L BUN 17 (7-17) mg/dL Creatinine 0.65 (0.52-1.04) mg/dL Estimated GFR 86.8 ML/MIN Glucose 115 H (74-106) mg/dL Lactic Acid (0.4-2.0) Calcium 8.8 (8.4-10.2) mg/dL Magnesium (1.6-2.3) mg/dL Total Bilirubin 0.20 (0.2-1.3) mg/dL AST 31 (14-36) U/L ALT 19 (0-35) U/L Alkaline Phosphatase 72 (38-126) U/L Troponin I (0.000-0.033) ng/mL NT-Pro-B Natriuret Pep (<300) pg/mL Serum Total Protein 6.5 (6.3-8.2) g/dL Albumin 3.5 (3.5-5.0) g/dL Urine Color (Yellow) Urine Appearance (Clear) Urine pH (4.6-8.0) Ur Specific [place] (1.005-1.030) Urine Protein (Negative) Urine Glucose (UA) (Negative) mg/dL Urine Ketones (Negative) Urine Blood (Negative) Urine Nitrite (Negative) Urine Bilirubin (Negative) Urine Urobilinogen (0.2) mg/dL Ur Leukocyte Esterase (Negative) U Hyaline Cast (Auto) (0-2) /LPF Urine Microscopic RBC (0-5) /HPF Urine Microscopic WBC (0-5) /HPF Ur Epithelial Cells (None Seen) /HPF Urine Bacteria (None Seen) /HPF Urine Culture Reflexed (NO) Influenza Type A Ag (NEGATIVE) Influenza Type B Ag (NEGATIVE) RSV (PCR) (NEGATIVE) SARS-CoV-2 (PCR) (NEGATIVE) - Radiology Exams Ordered Rad Exams-Entire Visit: Radiology Procedures Category Date Time Status CHEST 1 VIEW (PORTABLE) Stat Exams 06/17/23 19:43 Completed - Procedures and Test Procedures and Tests throughout Hospitalization: Therapy Orders & Screens 06/17/23 19:51 Respiratory Therapy Assessment DAILY Comment: 06/17/23 22:49 Oxygen Nasal Cannula 2 lpm Comment: Respiratory Therapy Consult ONCE Comment: Reason For Exam: 06/17/23 23:48 Smoking Cessation Education ONCE Comment: Diagnosis: FLUA+, COPD Exacerbation Smoking Status: Current every day smoker Approximately how many cigarettes per day: 1-2 cigs per day Do you dip or chew tobacco: No 06/18/23 11:37 Qualify for Home Oxygen TODAY Comment: Diagnosis: FLUA+, COPD Exacerbation Discharge Exam General Appearance: no apparent distress Neurologic Exam: alert, cooperative Eye Exam: PERRL Ears, Nose, Throat Exam: normal ENT inspection Neck Exam: normal inspection Respiratory Exam: wheezing Cardiovascular Exam: regular rate/rhythm, normal heart sounds Gastrointestinal/Abdomen Exam: soft, normal bowel sounds Pelvic Exam: deferred Rectal Exam: deferred Back Exam: normal inspection Extremity Exam: normal inspection Skin Exam: normal color Final Diagnosis/Problem List - Final Discharge Diagnosis/Problem (1) COPD exacerbation Current Visit: Yes Status: Acute Code(s): J44.1 - CHRONIC OBSTRUCTIVE PULMONARY DISEASE W (ACUTE) EXACERBATION (2) Influenza A Current Visit: Yes Status: Acute Code(s): J10.1 - FLU DUE TO OTH IDENT INFLUENZA VIRUS W OTH RESP MANIFEST (3) Respiratory failure Current Visit: Yes Status: Acute Code(s): J96.90 - RESPIRATORY FAILURE, UNSP, UNSP W HYPOXIA OR HYPERCAPNIA - Discharge Disposition: Home, Self-Care Condition: Stable Prescriptions: New Albuterol/Ipratropium 3ml Neb* [DUONEB 0.5-3 MG/3 ml Neb] 3 ml IH Q6HRT 30 Days #120 amp Methylprednisolone Packet [Medrol Dosepack] 4 mg PO UD #30 packet Continue Timolol Maleate/Pf [Timolol Maleate 0.25% Eye Drop] 8 drops OP BID Tramadol HCl 50 mg [Ultram 50 mg] 50 mg PO Q6H PRN PRN PRN Reason: Pain Additional Instructions: NEBULIZER MACHINE HAS BEEN ORDERED THRU [facility]- THEY WILL DELIVER THIS TO YOUR HOME. IF YOU NEED TO CONTACT THEM, THEIR PHONE NUMBER IS [phone] Follow up with: RUPERTO REYES MD [Primary Care Provider] - 06/28/23 3:15 pm
[2023-06-18 16:31] VITALS: PULSE 71; TEMP 98.5; O2SAT 92
--- NOTE | 2023-06-18 17:06 | XRAY ---
Indication: Elevated d-dimer. Pulmonary embolus. Multiple contiguous axial images obtained through the chest using 80 cc Isovue 370 contrast and PE protocol. Comparison: None Good opacification of the pulmonary arteries to include the lobar and segmental branches. No pulmonary mass. Prominent right main pulmonary artery up to 2.8 cm and left main pulmonary artery up to 2.7 cm favoring pulmonary hypertension. Heart not enlarged. Aorta moderately arteriosclerotic without aneurysm/dissection. [place] right hilar calcified nodes. No pathologic mediastinal/hilar lymphadenopathy. Lungs demonstrates diffuse pulmonary emphysema. No suspicious pulmonary mass/nodule, infiltrate, or effusion. Bony thorax intact with osteopenia, mild degenerative changes throughout spine, and mild levoscoliosis centered at thoracolumbar junction. Limited upper abdomen demonstrates 1.2 cm left renal exophytic mass further detailed on MRI kidneys. Impression: 1. Negative pulmonary embolus. No acute cardiopulmonary abnormalities. 2. Chronic findings including pulmonary emphysema, pulmonary hypertension, arteriosclerotic disease, chronic bony findings, and old granulomatous disease. 3. 1.2 cm left renal exophytic mass stable in size with respect to MRI kidneys April 20, 2021.
== END 2023-06-18 18:10 | disposition home or self-care (01) ==
LOC: ED 19:22 → MED SURG 22:43
PROVIDERS: ADMIT Student in an Organized Health Care Education/Training Program; ATTEND Student in an Organized Health Care Education/Training Program
DX: J44.1 Chronic obstructive pulmonary disease with (acute) exacerbation (principal); J10.1 Influenza due to other identified influenza virus with other respiratory manifestations; J96.90 Respiratory failure, unspecified, unspecified whether with hypoxia or hypercapnia; F17.200 Nicotine dependence, unspecified, uncomplicated; Z79.899 Other long term (current) drug therapy; Z20.828 Contact with and (suspected) exposure to other viral communicable diseases
CPT/HCPCS: 0241U; 36000; 36415; 71045; 71260; 80053; 81001; 83605; 83735; 83880; 84484; 85025; 85379; 87040; 93005; 93041; 93268; 94640; 94762; 96374; 99285; G0378; Q3014; J2919; A9270-GY